=== PATIENT | male | born 1950 | race Caucasian/White ===

== ENCOUNTER → 2019-12-02 | Outpatient (CLI) | payer MEDICARE ==
--- NOTE | 2019-12-02 08:47 | Diagnostic Imaging Report ---
PROCEDURE: CT abdomen and pelvis without contrast. TECHNIQUE: Multiple contiguous axial images were obtained through the abdomen and pelvis without the use of intravenous contrast. Auto Exposure Controls were utilized during the CT exam to meet ALARA standards for radiation dose reduction. INDICATION: Hematuria and dysuria. No prior studies are available for comparison. Lung bases are free of acute infiltrates. There is a tiny micronodule in the lateral portion of the right middle lobe. The liver contains a tiny approximately 7 mm low-density right lobe, too small to characterize. No other liver masses are seen. Gallbladder is unremarkable. No biliary duct dilatation is seen. The pancreas and spleen are unremarkable. No adrenal mass is detected. There is a nonobstructing calculus lower pole right kidney measuring 4 mm. There is an approximately 2 mm nonobstructing calculus lower pole left kidney. No ureteral calculi or hydronephrosis is seen. There is a large bladder calculus in the right aspect of the bladder base measuring 19 mm. The prostate is mildly enlarged. Aorta and iliac vessels are calcified but non-aneurysmal. Bowel loops appear to be nonobstructed. There is diverticulosis of the sigmoid colon and the distal descending colon but no evidence of acute diverticulitis. No free fluid or fluid collection is identified. Fat-containing inguinal hernias bilaterally are noted. Bony structures are nonacute. IMPRESSION: 1. Bilateral nonobstructive nephrolithiasis. In addition, there is a 19 mm bladder calculus. No ureteral calculi or hydronephrosis is detected. 2. Uncomplicated diverticulosis. 3. Prostatomegaly. 4. Bilateral fat-containing inguinal hernias. Dictated by: Dictated on workstation # [id number]
== END ==
LOC: RAD FS 08:09
PROVIDERS: ATTEND Nurse Practitioner Family
DX: N20.0 Calculus of kidney (principal); N21.0 Calculus in bladder; K57.30 Diverticulosis of large intestine without perforation or abscess without bleeding; N40.1 Benign prostatic hyperplasia with lower urinary tract symptoms; K40.20 Bilateral inguinal hernia, without obstruction or gangrene, not specified as recurrent
CPT/HCPCS: 74176

== ENCOUNTER 2019-12-16 05:52 | Outpatient (CLI) | payer MEDICARE, OTHER ==
[~2019-12-16] VITALS: Ht 172 cm; Wt 81.8 kg
[2019-12-16] MEDS ORDERED: TMSL.4C PO (12:45)
[2019-12-16] MEDS ORDERED: METF-397 PO (12:51)
== END 2019-12-16 12:54 | disposition home or self-care (01) ==
LOC: PREOP 05:52
PROVIDERS: ATTEND Urology
DX: Z01.818 Encounter for other preprocedural examination (principal)

== ENCOUNTER 2019-12-18 10:28 | Day surgery (SDC) | payer MEDICARE, OTHER ==
[~2019-12-18] VITALS: Ht 172 cm; Wt 81.8 kg
[2019-12-18] VITALS (11 sets, daily range): BP systolic 109–175; BP diastolic 90–109
[~2019-12-18 10:28] MED LIST: METF-397 PO; TMSL.4C PO
[2019-12-18] MEDS ORDERED: cefTRIAXone FOR IV USE 1,000 MG in WATER (STERILE) FOR INJECTION 10 ML IV ONE (10:45)
[2019-12-18] MEDS: LACTATED RINGERS 1,000 ML IV PRN ×2 (11:03→12:30)
[2019-12-18] MEDS ORDERED: MIDAZOLAM 2 MG/2 ML (VERSED) VIAL ONE (11:37)
[2019-12-18] MEDS ORDERED: LIDOCAINE PF 2% 5 ML (XYLOCAINE) VIAL ONE (11:37)
[2019-12-18] MEDS ORDERED: proPOfol 200 MG/20 ML (DIPRIVAN) VIAL IV ONE (11:37)
[2019-12-18] MEDS ORDERED: fentaNYL INJECTION 100 MCG/2 ML AMP ONE ×2 (11:38→12:35)
--- NOTE | 2019-12-18 12:00 | Progress Note-Pre Operative ---
Pre-Operative Progress Note H&P Reviewed The H&P was reviewed, patient examined and no changes noted. Date Seen by Provider: Dec 18, 2019 Time Seen by Provider: 12:00 Date H&P Reviewed: Dec 18, 2019 Time H&P Reviewed: 12:00 Pre-Operative Diagnosis: BPH WITH LARGE BLADDER STONE TERESA KOHLI MD Dec 18, 2019 12:00
--- NOTE | 2019-12-18 12:01 | Progress Note-Post Operative ---
Post-Operative Progess Note Surgeon (s)/Generator Operator (s) Surgeon TERESA KOHLI MD Generator Operator: NONE Pre-Operative Diagnosis BPH WITH LARGE BLADDER STONE Post-Operative Diagnosis SAME Procedure & Operative Findings Date of Procedure 12/18/19 Procedure Performed/Findings CYSTOLITHOTRIPSY Anesthesia Type GENERAL Estimated Blood Loss Estimated blood loss (mL): LESS THAN 50 CC Specimens/Packing Specimens Removed BLADDER STONE FRAGMENTS Packing: NONE TERESA KOHLI MD Dec 18, 2019 12:01
--- NOTE | 2019-12-18 12:02 | Discharge Inst-Urology ---
Discharge Inst-Urology Reconcile Patient Problems Problems Reviewed?: Yes Final Diagnosis BPH WITH BLADDER STONE Patient Instructions/Follow Up Plan/Assessment/Instructions Please make appointment to been seen in office in 2 weeks. Increase oral fluids for 48 hours and then as needed. Diet and Activity as tolerated. If questions or concerns contact your physician Or seek help at emergency department. TERESA KOHLI MD Dec 18, 2019 12:02
[2019-12-18] MEDS ORDERED: ESMOLOL 100 MG/10 ML (BREVIBLOC) VIAL ONE (12:39)
[2019-12-18] MEDS ORDERED: ONDANSETRON 4 MG/2 ML (SDV) Z0FRAN ONE (12:39)
[2019-12-18] MEDS ORDERED: SEVOFLURANE (ULTANE) 15 ML INHAL SOLN ONE ×7 (12:39→14:19)
--- NOTE | 2019-12-18 14:41 | Anesthesia-General Post-Op ---
General Patient Condition Mental Status/LOC: Same as Preop Cardiovascular: Satisfactory Nausea/Vomiting: Absent Respiratory: Satisfactory Pain: Controlled Complications: Absent Post Op Complications Complications None Follow Up Care/Instructions Patient Instructions None needed. Anesthesia/Patient Condition Patient Condition Patient is doing well, no complaints, stable vital signs, no apparent adverse anesthesia problems. No complications reported per nursing. MANOHAR OHARA CRNA Dec 18, 2019 14:41
[2019-12-18] MEDS ORDERED: fentaNYL INJECTION 100 MCG/2 ML AMP IVP ONE (14:45)
[2019-12-18] MEDS ORDERED: morphine INJ 10 MG/ML 1ML (SYR OR VIAL) IVP ONE (14:45)
[2019-12-18] MEDS ORDERED: MEPERIDINE (DEMEROL) INJ 50 MG/ML IVP ONE (14:45)
[2019-12-18] MEDS ORDERED: ONDANSETRON 4 MG/2 ML (SDV) Z0FRAN IVP PRN (14:45)
[2019-12-18] MEDS ORDERED: PHENAZOPYRIDINE 100 MG (PYRIDIUM) TABLET ONE (16:04)
[2019-12-18] MEDS ORDERED: PHENAZOPYRIDINE 100 MG (PYRIDIUM) TABLET PO ONE (16:15)
[2019-12-18] MEDS ORDERED: TRAM50TA3 PO (16:54)
[2019-12-18] MEDS ORDERED: SULF1TAB35 PO (16:54)
[2019-12-18] MEDS ORDERED: PHEN-640 PO (16:54)
--- NOTE | 2019-12-19 01:55 | OPERATIVE REPORT ---
DATE OF SERVICE: 12/18/2019 PREOPERATIVE DIAGNOSES: Benign prostatic hypertrophy and large bladder stone greater than 2.5 cm. POSTOPERATIVE DIAGNOSES: Benign prostatic hypertrophy and large bladder stone greater than 2.5 cm. OPERATION PERFORMED: Cystolithotripsy. SURGEON: Niall Kohli MD ANESTHESIA: General. COMPLICATIONS: None. DESCRIPTION OF PROCEDURE: Under satisfactory general anesthesia, the patient in lithotomy position, genitalia were prepped and draped in the usual sterile fashion. Cystoscope was introduced under vision, 23-Ethiopian, anterior urethra was normal. The prostate revealed trilobar enlargement with bladder neck obstruction and trabeculations and visualized again the largest stone over 2.5 cm. I went ahead and used the lithoclast probe started fragmenting the stone. It took about 15 to 20 minutes to crack the stone and then keep on breaking and fragmenting all the fragments of the stones. As far as I can see because of the interference of the cloudiness above the fluid as well as the size of the prostate, I broke up the whole stone and delivered all the fragments irrigated out. I went ahead and removed the cystoscope, introduced a 27-Ethiopian Dorman resectoscope sheath to achieve better irrigation and got little bit of more fragments not significantly more. I removed the resectoscope sheath. I inserted a 22-Ethiopian 3-way 30 mL balloon Bravo catheter into the bladder, inflated the balloon to 30 mL, and connected it to the remaining amount of sterile water. We have CBI to clear up the urine and see how the patient is going to postoperatively to decide upon dismissal or admission. The patient tolerated the procedure and anesthesia well and was sent to recovery room in stable condition. Estimated blood loss less than 50 mL, none of which was replaced. Intraoperative finding and plan was fully explained to his . Job ID: [id number] DocumentID: [id number] Dictated Date: 12/18/2019 14:58:48 Systems Auditor Date: 12/19/2019 01:54:46 Dictated By: NIALL KOHLI MD
== END 2019-12-18 17:00 | disposition home or self-care (01) ==
LOC: SDC 10:28
PROVIDERS: ATTEND Urology
DX: N21.0 Calculus in bladder (principal); N40.0 Benign prostatic hyperplasia without lower urinary tract symptoms; E11.9 Type 2 diabetes mellitus without complications; K21.9 Gastro-esophageal reflux disease without esophagitis; Z79.84 Long term (current) use of oral hypoglycemic drugs; Z79.899 Other long term (current) drug therapy
CPT/HCPCS: 82962; 87081; 88300

== ENCOUNTER → 2020-02-05 | Outpatient (CLI) | payer MEDICARE, OTHER ==
[~2020-02-05] MED LIST changes: +PHEN-640 PO; +SULF1TAB35 PO; +TRAM50TA3 PO
== END ==
LOC: CARD 09:00
PROVIDERS: ATTEND Internal Medicine Cardiovascular Disease
DX: I10 Essential (primary) hypertension (principal); I36.1 Nonrheumatic tricuspid (valve) insufficiency; E11.9 Type 2 diabetes mellitus without complications; E78.2 Mixed hyperlipidemia; R06.00 Dyspnea, unspecified; Z82.49 Family history of ischemic heart disease and other diseases of the circulatory system
CPT/HCPCS: 93306

== ENCOUNTER → 2020-02-15 | Outpatient (CLI) | payer MEDICARE, OTHER ==
[~2020-02-15] VITALS: Ht 172 cm; Wt 84.0 kg
[~2020-02-15] MED LIST changes: +REGADENOSON 0.4 MG/5 ML SYR (LEXISCAN) IV ONE
[2020-02-15] MEDS: CATHETER FLUSH 10 ML SYR IV PRN ×2 (08:19→09:39)
[2020-02-15 09:37] VITALS: BP 152/89
--- NOTE | 2020-02-15 11:44 | Cardiology Stress Test Report ---
Stress Test Report Date of Procedure/Referring: Date of Procedure: Feb 15, 2020 PCP Eneida Lopez MD Admitting Physician Center/[facility] Indications: Dyspnea Baseline Heart Rate: 62 Baseline Blood Pressure: Blood Pressure Systolic: 152 Blood Pressure Diastolic: 89 Baseline Vitals Vital Signs Date Time Temp Pulse Resp B/P (MAP) Pulse Ox O2 Delivery O2 Flow Rate FiO2 02/15/20 09:37 63 16 152/89 (110) 98 Room Air Baseline EKG: Baseline EKG: normal sinus rhythm Summary After explaining the procedure to the patient, he signed a consent and then brought to the stress nuclear laboratory. Patient received 0.4 mg Lexiscan for stress test, ECG, heart rate and blood pressure were monitored continuously. Resting and stress dose of radio tracer were injected, imaging was acquired and reviewed in short axis, horizontal long axis and vertical long axis views. TID: 1.08 SSS: 5 SDS: 4 EF: 56 1. Patient tolerated Lexiscan well 2. Mild reversible ischemia involving the mid to apical anterior wall and anterior septum 3. Normal left ventricular size, EF 56 percent ENEIDA LOPEZ MD Feb 15, 2020 11:44
== END ==
LOC: CARD 07:55
PROVIDERS: ATTEND Internal Medicine Cardiovascular Disease
DX: R06.00 Dyspnea, unspecified (principal); E11.9 Type 2 diabetes mellitus without complications; I10 Essential (primary) hypertension; E78.2 Mixed hyperlipidemia; Z82.49 Family history of ischemic heart disease and other diseases of the circulatory system
CPT/HCPCS: 78452; 93017; A9502

== ENCOUNTER 2020-02-19 07:28 | Day surgery (SDC) | payer MEDICARE, OTHER ==
[~2020-02-19] VITALS: Ht 173 cm; Wt 85.0 kg
[2020-02-19] VITALS (10 sets, daily range): BP systolic 129–164; BP diastolic 72–91
[~2020-02-19 07:28] MED LIST changes: -REGADENOSON 0.4 MG/5 ML SYR (LEXISCAN) IV ONE
[2020-02-19] MEDS ORDERED: NS IV 1000 ML 1,000 ML IV SCH ×2 (07:30→10:04)
[2020-02-19] MEDS ORDERED: NS IV 1000 ML 1,000 ML ONE (07:33)
[2020-02-19] MEDS ORDERED: HEParin (CATH LAB) 2,000 ML IV ONE (07:33)
[2020-02-19] MEDS ORDERED: LIDOCAINE 1% INJ 20 ML 20 ML VIAL ONE (07:34)
[2020-02-19] MEDS ORDERED: ATOR10TA66 PO (07:58)
[2020-02-19 08:00] LABS: HEMOGLOBIN 16.9 g/dL (13.3-17.7); MEAN PLATELET VOLUME 10.7 fL (9.0-12.2); WHITE BLOOD COUNT 5.5 10^3/uL (4.3-11.0)
[2020-02-19 08:08] LABS: ALBUMIN 4.5 GM/DL (3.2-4.5)
[2020-02-19 08:09] LABS: CALCIUM 9.7 MG/DL (8.5-10.1)
[2020-02-19 08:10] LABS: PROTHROMBIN TIME PATIENT 13.4 SEC (12.2-14.7); TOTAL PROTEIN 7.9 GM/DL (6.4-8.2)
[2020-02-19 08:12] LABS: BILIRUBIN,TOTAL 0.7 MG/DL (0.1-1.0)
[2020-02-19 08:14] LABS: CREATININE SERUM 1.29 MG/DL (0.60-1.30)
--- NOTE | 2020-02-19 08:25 | Diagnostic Imaging Report ---
PATIENT HISTORY: Abnormal stress test, shortness of breath, HTN. TECHNIQUE: Single frontal view of the chest. COMPARISON: None FINDINGS: The lung volumes are normal. No focal consolidation is seen. No large pleural effusion or pneumothorax is seen. The cardiomediastinal silhouette is normal in size and contour. No acute osseous abnormality is seen. IMPRESSION: No acute pulmonary abnormality seen. Dictated by: Dictated on workstation # [id number]
[2020-02-19] MEDS ORDERED: MIDAZOLAM 5 MG/5 ML (VERSED) VIAL ONE (09:16)
[2020-02-19] MEDS ORDERED: fentaNYL INJECTION 100 MCG/2 ML AMP ONE (09:16)
[2020-02-19] MEDS ORDERED: METF-397 PO (10:05)
--- NOTE | 2020-02-19 10:06 | Discharge Inst-Post CATH ---
Discharge Inst-CATH/EP Problems Reviewed?: Yes Post Cardiac Cath/EP D/C Inst Follow Up/Plan Hold metformin for [address] Lopez's office in 4 weeks <b>CARDIAC CATH/EP PROCEDURE DISCHARGE INSTRUCTIONS</b> ACTIVITY * Go Home directly and rest. * Limit activity of the leg (or wrist if it was used) for 7 days including aerobics, swimming, jogging, bicycling, etc. * Restrict stair-climbing for 7 days if possible, if not, climb up with your non-cath leg, then bring together on the same step. * Avoid lifting, pushing, pulling or excessive movement of the affected extremity for 7 days. * Customary sexual activity may be resumed after 2 days-use caution not to use a position that strains or causes pain to the affected extremity. * No driving for 24 hours. * NO SMOKING. * Avoid straining for bowel movements for 7 days. * Gentle walking on level ground is allowed. * Returning to work will depend on the type of procedure and the results. Your doctor will discuss this with you. CALL YOUR DOCTOR FOR ANY OF THE FOLLOWING: *If bleeding from the puncture site occurs- Apply gentle pressure to site with clean cloth and call your doctor or EMS. * If a knot or lump forms under the skin, increases in size, or causes pain. * If bruising appears to be worsening or moving further down your leg instead of disappearing. * Temperature above 101 F. CARE OF YOUR GROIN INCISION; * Bruising or purple discoloration of the skin near the puncture site is common. * You may shower only, no bathtub bathing for 5 days. Be careful to avoid slipping as your leg may feel stiff. * If a closure device was used on your femoral artery, please see the attached guide regarding care of the device and your leg. * Leave dressing on FOR 24 hours. CARE OF YOUR WRIST INCISION; * Bruising or purple discoloration of the skin near the puncture site is common. * You may shower. * DO NOT submerge wrist. * Leave dressing on FOR 24 hours. ENEIDA LOPEZ MD Feb 19, 2020 10:06 am
--- NOTE | 2020-02-19 10:10 | Cardiac Cath Report ---
Cardiac Cath Report Physician (s)/[place] Operator (s) Physician ENEIDA PARMAR MD Pre-Procedure Diagnosis Pre-Procedure Diagnosis: coronary artery disease Post-Procedure Note Procedure Start Date: Feb 19, 2020 Name of Procedure: Left heart catheterization Findings/Procedure Note PROCEDURE NOTE: 69 years old gentleman with hyperlipidemia, increasing dyspnea on exertion, abnormal stress test, scheduled for cardiac catheterization possible PTCA. After explaining the procedure to the patient, all pros and cons were explained, all questions were answered. The patient signed the consent and then he was placed on the cardiac catheterization laboratory. Groin was prepped SL fashion local anesthesia was used. Sheath placed in the right femoral artery. Patt right and left catheter were used to access the coronary system. JR catheter advanced to the left ventricular cavity, pressure was measured left ventricular gram was done. At the end of the procedure the sheath was removed. Closure device was deployed FINDINGS: Hemodynamics LV 125/12, end-diastolic pressure of 12 Aorta 149/76 mean of 100 ANATOMY: Left Main is free of obstructive disease Left Anterior Descending is slightly tortuous with mild disease nonobstructive disease Left Circumflex is small to moderate in size with mild disease, high obtuse marginal/ramus intermedius has mild to moderate disease proximally nonobstruct laton disease Right Coronory Artery is dominant artery with mild disease LV Gram was done showing normal left ventricular size normal systolic function, EF 60 percent CONCLUSION: 1. Slightly tortuous coronary system with esnt-np-djdavaej disease nonobstructive disease 2. Normal left ventricular size and systolic function, EF 60 percent DISCUSSION AND RECOMMENDATION: Medical therapy is recommended no intervention is needed Anesthesia Type: Conscious Sedation Estimated blood loss (mL): 15 ml Contrast Amount: 44 ml Total Radiation Dose: 392 mGy Post-Procedure Diagnosis Post-operative diagnosis: Chest pain Coronary artery disease Hypertension Hyperlipidemia ENEIDA PARMAR MD Feb 19, 2020 10:10 am
--- NOTE | 2020-02-19 10:11 | Cardiac Procedure Note-CS/ASA ---
Pre-Procedure Note Pre-Op Procedure Note H&P Reviewed The H&P was reviewed, patient examined and no changes noted. Date H&P Reviewed: Feb 19, 2020 Time H&P Reviewed: 09:00 Conscious Sedation Pre-Proced Time 09:00 ASA Score 3 For ASA 3 and 4: Consider anesthesia and medical clearance. Also, for patients with a history of failed moderate sedation consider anesthesia. Airway Lungs Heart ASA score ASA 1: a normal healthy patient ASA 2: a patient with a mild systemic disease (mid diabetes, controlled hypertension, obesity x ASA 3: a patient with a severe systemic disease that limits activity (angina, COPD, prior Myocardial infarction) ASA 4: a patient with an incapacitating disease that is a constant threat to life (CHF, renal failure) ASA 5: a moribund patient not expected to survive 24 hrs. (ruptured aneurysm) ASA 6: a declared brain- patient whose organs are being harvested. For emergent operations, add the letter E after the classification Mallampati Classification Grade 3 Sedation Plan Analgesia, Amnesia, Plan communicated to team members, Discussed options with patient/fam, Discussed risks with patient/fam The patient is an appropriate candidate to undergo the planned procedure, sedation, and anesthesia. The patient immediately re-assessed prior to indication. ENEIDA PARMAR MD Feb 19, 2020 10:11 am
[2020-02-19] MEDS ORDERED: PATIENT MAY USE OWN MEDS, ALL PO SCH (10:15)
== END 2020-02-19 13:55 | disposition home or self-care (01) ==
LOC: CATH 07:28
PROVIDERS: ATTEND Internal Medicine Cardiovascular Disease
DX: I25.10 Atherosclerotic heart disease of native coronary artery without angina pectoris (principal); I10 Essential (primary) hypertension; E78.2 Mixed hyperlipidemia; E11.9 Type 2 diabetes mellitus without complications; Z88.8 Allergy status to other drugs, medicaments and biological substances; Z79.899 Other long term (current) drug therapy; Z79.84 Long term (current) use of oral hypoglycemic drugs; Z87.891 Personal history of nicotine dependence
CPT/HCPCS: 71045; 80053; 80061; 85027; 85610; 85730; 87081; 93458; C1760; C1894; 36415

== ENCOUNTER 2021-04-10 05:51 | Outpatient (CLI) | payer MEDICARE, OTHER ==
[~2021-04-10] VITALS: Ht 172.7 cm; Wt 82.0 kg
[~2021-04-10 05:51] MED LIST changes: +ATOR10TA66 PO; -SULF1TAB35 PO; +SULF1TAB38 PO
[2021-04-11] MEDS ORDERED: LOSA50TA63 PO (09:58)
== END 2021-04-11 10:49 | disposition home or self-care (01) ==
LOC: PREOP 05:51
PROVIDERS: ATTEND Podiatrist Foot & Ankle Surgery
DX: Z01.818 Encounter for other preprocedural examination (principal)

== ENCOUNTER 2021-04-17 07:09 | Day surgery (SDC) | payer MEDICARE, OTHER ==
[2021-04-17] VITALS (11 sets, daily range): BP systolic 129–162; BP diastolic 73–99
[~2021-04-17] VITALS: Ht 172.7 cm; Wt 82.0 kg
[~2021-04-17 07:09] MED LIST changes: +LOSA50TA63 PO
[2021-04-17] MEDS ORDERED: LACTATED RINGERS 1,000 ML IV PRN (07:15)
[2021-04-17] MEDS ORDERED: ceFAZolin INJECTION 1,000 MG VIAL IV ONE (07:15)
[2021-04-17] MEDS ORDERED: ONDANSETRON 4 MG/2 ML (SDV) Z0FRAN ONE (09:50)
[2021-04-17] MEDS ORDERED: LIDOCAINE PF 2% 5 ML (XYLOCAINE) VIAL ONE (09:50)
[2021-04-17] MEDS ORDERED: MIDAZOLAM 2 MG/2 ML (VERSED) VIAL ONE (09:50)
[2021-04-17] MEDS ORDERED: proPOfol 200 MG/20 ML (DIPRIVAN) VIAL IV ONE (09:50)
[2021-04-17] MEDS ORDERED: fentaNYL INJ 100 MCG/2 ML AMP ONE (09:50)
[2021-04-17] MEDS ORDERED: BUPIVACAINE 0.5% 30 ML (SENSORCAINE) VIAL ONE (10:00)
[2021-04-17] MEDS ORDERED: LIDOCAINE 1% INJ 20 ML 20 ML VIAL ONE (10:00)
--- NOTE | 2021-04-17 10:06 | Progress Note-Pre Operative ---
Pre-Operative Progress Note H&P Reviewed The H&P was reviewed, patient examined and no changes noted. Date Seen by Provider: Apr 17, 2021 Time Seen by Provider: 10:06 Date H&P Reviewed: Apr 17, 2021 Time H&P Reviewed: 10:06 Pre-Operative Diagnosis: Plantar Fasciitis left ISABEL CHAIDEZ DPDelmi Apr 17, 2021 10:06
[2021-04-17] MEDS ORDERED: SEVOFLURANE (ULTANE) 15 ML INHAL SOLN ONE (10:42)
[2021-04-17] MEDS ORDERED: LACTATED RINGERS 1,000 ML IV SCH (10:45)
[2021-04-17] MEDS ORDERED: HYDROcodone/APAP 5 MG/325 MG (LORTAB) TAB PO PRN (10:45)
--- NOTE | 2021-04-17 10:45 | Progress Note-Post Operative ---
Post-Operative Progess Note Surgeon (s)/Recovery Engineer (s) Surgeon ISABEL CHAIDEZ DPM Recovery Engineer: none Pre-Operative Diagnosis Plantar Fasciitis left Post-Operative Diagnosis same Procedure & Operative Findings Date of Procedure 04/17/21 Procedure Performed/Findings Endoscopic plantar fascial release, left Anesthesia Type General Estimated Blood Loss Estimated blood loss (mL): Minimal Specimens/Packing Specimens Removed none ISABEL CHAIDEZ DPM Apr 17, 2021 10:45
[2021-04-17] MEDS ORDERED: CEPH500C PO (10:48)
[2021-04-17] MEDS ORDERED: ACHD5005 PO (10:48)
[2021-04-17] MEDS ORDERED: MEPERIDINE (DEMEROL) INJ 50 MG/ML IVP ONE (11:00)
[2021-04-17] MEDS ORDERED: morphine INJ 10 MG/ML 1ML (SYR OR VIAL) IVP ONE (11:00)
[2021-04-17] MEDS ORDERED: ONDANSETRON 4 MG/2 ML (SDV) Z0FRAN IVP PRN (11:00)
--- NOTE | 2021-04-17 13:06 | Physical Therapy Ortho Eval ---
PT Orthopedic Evaluation Type of Surgery Prior Level of Function Current Living Status: Spouse Locomotion (Upon Admit): Independent [place] Crutches Subjective Subjective Patient very groggy, and has difficulty answering some questions. fills in the blanks with appropriate answers. Entry Into Home: Stairs With Railing Steps Into Home: 4 Steps Inside Home: 0 Motor Control Motor Control: Motor Control WNL ROM ROM: WFL, except focal deficit Strength Strength: WFL Transfer SCALE: Activities may be completed with or without assistive devices. 4-Dzjdzaxkri-pasdzom completes the activity by him/herself with no assistance from a helper. 5-Set-up or Clean-up Assistance-helper sets up or cleans up; patient completes activity. [place] assists only prior to or following the activity. 4-Supervision or Touching Assistance-helper provides verbal cues and/or touching/steadying and/or contact guard assistance as patient completes activity. Assistance may be provided throughout the activity or intermittently. 3-Partial/Moderate Assistance-helper does LESS THAN HALF the effort. [place] lifts, holds or supports trunk or limbs, but provides less than half the effort. 2-Substantial/Maximal Assistance-helper does MORE THAN HALF the effort. [place] lifts or holds trunk or limbs and provides more than half the effort. 2-Uamgjeazy-dbkdvq does ALL the effort. Patient does none of the effort to complete the activity. Or, the assistance of 2 or more helpers is required for the patient to complete the activity. If activity was not attempted, code reason: 7-Patient Refused. 9-Not Applicable-not attempted and the patient did not perform the activity before the current illness, exacerbation or injury. 10-Not Attempted due to Environmental Limitations-(lack of equipment, weather restraints, etc.). 88-Not Attempted due to Medical Conditions or Safety Concerns. Transfers (B, C, W/C) (QC): 4 Gait Gait Assistive Device: Crutches Right Lower Extremity: Right Weight Bearing Status RLE: Full Weight Bearing Left Lower Extremity: Left Weight Bearing Status LLE: Non Weight Bearing Other Weight Bearing Inst.: Non weight bearing left for the first 24 hours then progress to partial Gait (QC): 4 Distance (QC): 1=up to 49 ft Distance: 45 feet Gait Level of Assist: 4 Summary/Comments Patient ascended/descended 1 step x 4 with crutches and min A Treatment Rendered Treatment: Gait Train, Step Train Assessment/Goals Goal Time Frame: 1 Visit Safe Ambulation: Yes Plan Treatment Plan: Discharge PT/Family Agrees to Plan: Yes Time Time In: 1230 Time Out: 1246 Total Billed Treatment Time: 16 Billed Treatment Time Visit, DANIELLA Khalil PT Apr 17, 2021 13:06
--- NOTE | 2021-04-17 15:24 | OPERATIVE REPORT ---
DATE OF SERVICE: 04/17/2021 SURGEON: Jasmine Chaidez DPM. PREOPERATIVE DIAGNOSIS: Plantar fasciitis, left foot. POSTOPERATIVE DIAGNOSIS: Plantar fasciitis, left foot. PROCEDURE: Endoscopic plantar fascial release, left. WOUND CLASS: Clean. ANESTHESIA: General. HEMOSTASIS: Pneumatic thigh tourniquet at 250 mmHg. INDICATIONS: This 70-year-old male presents with chronic pain to the left heel. Conservative therapy is met with unsatisfactory results and the patient is agreeable to surgical intervention after risks and complications were discussed at length. No guarantees were extended to the patient and he is willing to proceed. DESCRIPTION OF PROCEDURE: The patient was brought back to the operating table, placed in secure supine position. A general anesthetic was then induced. Appropriate timeout was performed. The left foot was then prepped and draped in normal sterile manner. The left foot was then elevated, allowed to exsanguinate after which the tourniquet was inflated to 250 mmHg. Attention was then directed to the medial aspect of the left heel at a predetermined spot at the junction of the dorsal and plantar skin. A 0.5 cm vertical incision was created. The incision was deepened in the same plane with great care to identify and retract all vital neurovascular structures. The incision was deepened down with blunt dissection down to the plantar fascia. A probe was introduced into the medial incision the plantar fascia from the overlying adipose tissue. Next, an obturator and cannula were introduced into the medial incision along the inferior aspect of the plantar fascia tenting the lateral skin where a second incision was created allowing for the obturator and cannula to pass through this 0.5 cm vertical incision. The obturator was kept in place while the cannula was withdrawn from the foot. A 3 mm scope was introduced. Camera was introduced into the lateral portal visualizing the inferior aspect of the plantar fascia. Utilizing a hook followed by a triangular blade, the medial third of the plantar fascia was released under direct visualization. Palpation of the medial arch indicated release of tension to the medial band of the plantar fascia after this procedure. The camera and hook blade and triangle blades were withdrawn from the foot after which the wound was flushed with normal saline. The cannula was then withdrawn from the foot after which closure was performed. Skin was reapproximated utilizing 4-0 Prolene in a horizontal mattress type stitch. Postoperative injection consisted of 10 mL of 0.5% Marcaine injected in a local infusion to the surgical sites. A 10 mg dexamethasone was also utilized to the plantar medial aspect of the left heel at the plantar fascial insertion. Postoperative dressing consisted of Betadine soaked Adaptic, sterile 4 x 4, sterile Kerlix all secured with a Coban wrap. The patient tolerated the anesthesia and procedure well, was transported from the operating room to the recovery area with vital signs stable and vascular status intact to all digits of the left foot. Postoperative instructions were dispensed to the patient. He is to be nonweightbearing for the first 24 hours, then progress to partial and full weightbearing to his tolerance. We will see him back in the office in 10 days' period of time or sooner if necessary. Job ID: [id number] DocumentID: [id number] Dictated Date: 04/17/2021 11:02:23 Test Conductor Date: 04/17/2021 15:23:37 Dictated By: JASMINE CHAIDEZ DPM
--- NOTE | 2021-04-18 10:14 | Anesthesia-General Post-Op ---
General Patient Condition Mental Status/LOC: Same as Preop Cardiovascular: Satisfactory Nausea/Vomiting: Absent Respiratory: Satisfactory Pain: Controlled Complications: Absent Post Op Complications Complications None Follow Up Care/Instructions Patient Instructions None needed. Anesthesia/Patient Condition Patient Condition Patient is doing well, no complaints, stable vital signs, no apparent adverse anesthesia problems. No complications reported per nursing. EVANGELINA RESENDIZ CRNA Apr 18, 2021 10:14
== END 2021-04-17 13:15 | disposition home or self-care (01) ==
LOC: SDC 07:09
PROVIDERS: ATTEND Podiatrist Foot & Ankle Surgery
DX: M72.2 Plantar fascial fibromatosis (principal); E11.9 Type 2 diabetes mellitus without complications; K21.9 Gastro-esophageal reflux disease without esophagitis; I10 Essential (primary) hypertension; E78.5 Hyperlipidemia, unspecified; Z79.899 Other long term (current) drug therapy; Z79.84 Long term (current) use of oral hypoglycemic drugs; Z87.891 Personal history of nicotine dependence
CPT/HCPCS: 82947; 87081